=== PATIENT | female | born 1955 | race Hispanic/Latino ===

== ENCOUNTER → 2021-04-28 | Outpatient (CLI) | payer OTHER | END | disposition home or self-care (01) | LOC: SHCH 11:16 | PROVIDERS: ATTEND Internal Medicine | DX: I36.1 Nonrheumatic tricuspid (valve) insufficiency (principal); I11.9 Hypertensive heart disease without heart failure; E66.9 Obesity, unspecified; R94.31 Abnormal electrocardiogram [ECG] [EKG]; R22.43 Localized swelling, mass and lump, lower limb, bilateral | CPT/HCPCS: 93306; 93356 ==

== ENCOUNTER → 2021-05-20 | Outpatient (CLI) | payer OTHER ==
[~2021-05-20] VITALS: Ht 152.4 cm; Wt 126.1 kg
[~2021-05-20] MED LIST: REGADENOSON 0.4 MG/5 ML PF SYG IVP SCH
== END | disposition home or self-care (01) ==
LOC: SHCH 05-02 08:26 → EDUNIT# 05-02 08:30 → SHCH 09:02
PROVIDERS: ATTEND Internal Medicine
DX: R06.09 Other forms of dyspnea (principal)
CPT/HCPCS: 78452; 93017; 96374; A9500 ×2; J2785

== ENCOUNTER 2021-08-04 05:38 | Day surgery (SDC) | payer OTHER ==
[2021-08-02 10:15] VITALS: BP 166/59
[2021-08-02 10:36] LABS: BASOPHILS % (AUTO) 0.5 % (0.0-5.0); EOSINOPHILS % (AUTO) 7.4 % (0.0-8.0); HEMATOCRIT 37.5 % (36-48); LYMPHOCYTES % (AUTO) 18.6 % (21.0-51.0); MEAN CORPUSCULAR HEMOGLOBIN 29.1 pg (27.0-33.0); MEAN CORPUSCULAR HGB CONC 30.1 g/dL (32.0-36.0); MEAN CORPUSCULAR VOLUME 96.6 fL (79-99); MONOCYTES % (AUTO) 9.3 % (3.0-13.0); NEUTROPHILS % (AUTO) 63.6 % (40.0-77.0); PLATELET COUNT (AUTO) 267 K/uL (130-400); RED BLOOD CELL COUNT(AUTO) 3.88 MIL/uL (4.00-5.50); RED CELL DISTRIBUTION WIDTH 15.6 % (11.0-15.5); WHITE BLOOD COUNT (AUTO) 8.6 K/uL (4.8-10.8)
[2021-08-02 10:43] LABS: APPEARANCE,URINE Clear (CLEAR); BILIRUBIN,URINE Negative (NEGATIVE); COLOR,URINE Yellow (YELLOW); CREATININE 1.4 mg/dL (0.5-1.5); GLUCOSE, URINE (UA) Negative (NEGATIVE); KETONES,URINE Negative (NEGATIVE); LEUKOCYTE ESTERASE ,URINE Trace (NEGATIVE); NITRATE,URINE Negative (NEGATIVE); OCCULT BLOOD,URINE Negative (NEGATIVE); PH,URINE 5.5 (5.0-8.0); POTASSIUM 4.1 mmol/L (3.5-5.1); PROTEIN,URINE Negative (NEGATIVE)
[2021-08-02 10:47] LABS: INR 0.98 (0.85-1.15); PROTHROMBIN TIME 10.7 SEC (9.6-11.6)
[2021-08-02 10:48] LABS: PARTIAL THROMBOPLASTIN TIME 28.8 SEC (26.3-35.5)
[2021-08-02 11:04] LABS: BACTERIA,URINE Rare /HPF (None Seen); MUCUS,URINE Rare LPF (None Seen); RBC,URINE 0-1 /HPF (0-1); SQUAMOUS EPITHELIAL CELL,UR Rare /HPF (0-2); WBC,URINE 0-1 /HPF (0-1)
[2021-08-04] VITALS (10 sets, daily range): BP systolic 93–136; BP diastolic 44–68
[~2021-08-04] VITALS: Ht 152.4 cm; Wt 126.8 kg
[~2021-08-04 05:38] MED LIST changes: +AEC81 PO; +ATOR40TA71 PO; +HYDR25TA PO; +ISOS20TA85 PO; +LOSA100T58 PO; +METO-391 PO; -REGADENOSON 0.4 MG/5 ML PF SYG IVP SCH
[2021-08-04] MEDS ORDERED: 0.9%NACL 1000ML 1,000 ML IV ONE (06:11)
[2021-08-04] MEDS ORDERED: HEPARIN 10,000 UNIT/10ML (1,000 UNIT/ML) VIAL ONE (07:10)
[2021-08-04] MEDS ORDERED: LIDOCAINE HCL 1% 20 ML VIAL ONE (07:10)
[2021-08-04] MEDS ORDERED: NICARDIPINE 25MG INJ IV ONE (07:10)
[2021-08-04] MEDS ORDERED: FENTANYL CITRATE PF 50 MCG/1 ML 2ML VIAL ONE (07:11)
[2021-08-04] MEDS ORDERED: IOHEXOL-350 50ML VIAL IV ONE (07:11)
[2021-08-04] MEDS ORDERED: NITROGLYCERIN 50MG VIAL ONE (07:11)
[2021-08-04] MEDS ORDERED: IOHEXOL 350 MG/ML 100ML INFUS..BTL IV ONE ×2 (07:11→08:17)
[2021-08-04] MEDS ORDERED: MIDAZOLAM HCL 1 MG/ML 2ML VIAL ONE (07:11)
[2021-08-04] MEDS ORDERED: 0.9%NACL 1000ML 1,000 ML IV SCH ×2 (08:00→10:00)
[2021-08-04] MEDS ORDERED: ASPIRIN 325MG EC TAB PO ONE (08:20)
[2021-08-04] MEDS ORDERED: CLOPIDOGREL 300MG TAB ONE (08:20)
[2021-08-04] MEDS ORDERED: EPTIFIBATIDE 2 MG/ML 10 ML VIAL IVP ONE (08:24)
[2021-08-04] MEDS ORDERED: ONDANSETRON 4MG INJ ONE ×2 (08:29→08:36)
[2021-08-04] MEDS ORDERED: ACETAMINOPHEN WITH CODEINE 1 TAB TAB PO PRN (10:00)
[2021-08-04] MEDS ORDERED: ONDANSETRON 4MG INJ IVP PRN (10:00)
== END 2021-08-04 14:05 | disposition home or self-care (01) ==
LOC: DAH 05:38
PROVIDERS: ATTEND Internal Medicine
DX: I25.119 Atherosclerotic heart disease of native coronary artery with unspecified angina pectoris (principal); I10 Essential (primary) hypertension; E66.01 Morbid (severe) obesity due to excess calories; E78.5 Hyperlipidemia, unspecified; Z79.01 Long term (current) use of anticoagulants; Z79.82 Long term (current) use of aspirin; Z79.899 Other long term (current) drug therapy; Z98.890 Other specified postprocedural states; Z68.43 Body mass index [BMI] 50.0-59.9, adult
CPT/HCPCS: 36415; 71045; 80048; 81001; 85025; 85610; 85730; 92978; 93005 ×2; 93458; 93571; A4215; A4216; A4221; A4222; A4223 ×3; A4335; A4554; A4606; A4663; C1725; C1753; C1769 ×5; C1874; C1887; C1894; C9600; J1327; J1644 ×3; J2250; J2405 ×2; J3010; J3490 ×2; J7030; Q9965 ×3; Q9967 ×3; 96360; 96361; 99156; 99157

== ENCOUNTER → 2022-12-04 | Outpatient (CLI) | payer OTHER ==
[~2022-12-04] MED LIST changes: -LOSA100T58 PO; +LOSA100T59 PO
== END | disposition home or self-care (01) ==
LOC: SHCH 08:59
PROVIDERS: ATTEND Student in an Organized Health Care Education/Training Program
DX: I11.9 Hypertensive heart disease without heart failure (principal); R06.02 Shortness of breath; E78.5 Hyperlipidemia, unspecified
CPT/HCPCS: 93306

== ENCOUNTER → 2023-09-24 | Outpatient (CLI) | payer OTHER | END | disposition home or self-care (01) | LOC: RAH 11:14 | PROVIDERS: ATTEND Nurse Practitioner Adult Health | DX: H53.133 Sudden visual loss, bilateral (principal) | CPT/HCPCS: 93880 ==

== ENCOUNTER 2023-11-22 20:44 | Emergency (ER) | payer OTHER ==
[~2023-11-22] VITALS: Ht 152.4 cm; Wt 122.5 kg
[2023-11-22] MEDS: FAMOTIDINE 20MG VIAL IV ONE (21:17)
[2023-11-22] MEDS: ONDANSETRON 4MG INJ IVP ONE (21:18)
[2023-11-22] MEDS: KETOROLAC 30MG VIAL (30MG/ML) IVP ONE (21:21)
[2023-11-22 21:27] LABS: BASOPHILS # (AUTO) 0.06 K/uL (0.00-0.20); BASOPHILS % (AUTO) 0.6 % (0.0-5.0); EOSINOPHILS # (AUTO) 0.32 K/uL (0.00-0.70); HEMATOCRIT 37.6 % (36-48); IMMATURE GRANULOCYTE ABSOLUTE 0.08 K/uL (0-1); LYMPHOCYTES # (AUTO) 1.5 K/uL (1.0-4.8); LYMPHOCYTES % (AUTO) 13.7 % (21.0-51.0); MEAN CORPUSCULAR HEMOGLOBIN 29.2 pg (27.0-33.0); MEAN CORPUSCULAR HGB CONC 31.1 g/dL (32.0-36.0); MEAN CORPUSCULAR VOLUME 93.8 fL (79-99); MONOCYTES # (AUTO) 0.8 K/uL (0.1-1.0); MONOCYTES % (AUTO) 7.1 % (3.0-13.0); NEUTROPHILS % (AUTO) 74.8 % (40.0-77.0); PLATELET COUNT (AUTO) 302 K/uL (130-400); RED BLOOD CELL COUNT(AUTO) 4.01 MIL/uL (4.00-5.50); RED CELL DISTRIBUTION WIDTH 16.6 % (11.0-15.5); WHITE BLOOD COUNT (AUTO) 10.6 K/uL (4.8-10.8)
[2023-11-22 21:37] LABS: POTASSIUM 4.3 mmol/L (3.5-5.1)
[2023-11-22 21:42] LABS: ALBUMIN 3.7 g/dL (3.5-5.0); BILIRUBIN,TOTAL 0.5 mg/dL (0.2-1.0); TOTAL PROTEIN, SERUM 7.6 g/dL (6.0-8.3)
[2023-11-22] MEDS ORDERED: ONDA-243 PO (22:55)
[2023-11-22] MEDS ORDERED: FAMO-136 PO (22:55)
[2023-11-22 23:21] VITALS: BP 150/92; PULSE 98; RESP 20; O2SAT 97
== END 2023-11-22 23:23 | disposition home or self-care (01) ==
LOC: EDH 20:44
DX: R11.2 Nausea with vomiting, unspecified (principal); R10.84 Generalized abdominal pain; I10 Essential (primary) hypertension; I25.10 Atherosclerotic heart disease of native coronary artery without angina pectoris; Z79.82 Long term (current) use of aspirin; Z79.899 Other long term (current) drug therapy; Z98.890 Other specified postprocedural states
CPT/HCPCS: 99284; 96374; 96375; 80053; 83690; 85025; 36415; J3490; J2405; J1885

== ENCOUNTER → 2023-11-30 | Outpatient (CLI) | payer OTHER ==
[~2023-11-30] MED LIST changes: +FAMO-136 PO; +ONDA-243 PO
== END | disposition home or self-care (01) ==
LOC: RAH 08:57
PROVIDERS: ATTEND Nurse Practitioner Adult Health
DX: K76.0 Fatty (change of) liver, not elsewhere classified (principal); R10.11 Right upper quadrant pain; K82.8 Other specified diseases of gallbladder; R16.0 Hepatomegaly, not elsewhere classified
CPT/HCPCS: 76700

== ENCOUNTER → 2024-01-02 | Outpatient (CLI) | payer OTHER ==
[2024-01-02 09:14] LABS: CREATININE 0.9 mg/dL (0.5-1.0)
== END | disposition home or self-care (01) ==
LOC: LAB 08:32
PROVIDERS: ATTEND Student in an Organized Health Care Education/Training Program
DX: R10.9 Unspecified abdominal pain (principal)
CPT/HCPCS: 36415; 82565; 84520

== ENCOUNTER → 2024-04-25 | Outpatient (CLI) | payer OTHER ==
[2024-04-25 12:24] LABS: HEMOGLOBIN A1C 6.2 % (4.0-6.0)
[2024-04-25 12:27] LABS: ALBUMIN 3.8 g/dL (3.5-5.0); BILIRUBIN,TOTAL 0.5 mg/dL (0.2-1.0); POTASSIUM 4.8 mmol/L (3.5-5.1); TOTAL PROTEIN, SERUM 7.1 g/dL (6.0-8.3)
== END | disposition home or self-care (01) ==
LOC: LAB 08:13
PROVIDERS: ATTEND Student in an Organized Health Care Education/Training Program
DX: I25.10 Atherosclerotic heart disease of native coronary artery without angina pectoris (principal); Z79.899 Other long term (current) drug therapy
CPT/HCPCS: 36415; 80053; 80061; 83036

== ENCOUNTER → 2024-08-27 | Outpatient (CLI) | payer OTHER ==
[~2024-08-27] MED LIST changes: +ISOS-58 PO; -ISOS20TA85 PO
--- NOTE | 2024-08-27 09:57 | HMCIMG ---
Exam Type: LUMBAR SPINE 2-3VWS Clinical Information: Low back pain, unspecified Comparison: None Findings: Exam of the lumbosacral spine demonstrates no evidence of fracture or subluxation. There are moderate spondylitic changes. The facet joints show moderate degenerative changes. The alignment of the spine is normal. The disc spaces are intact. Bone mineralization is normal. Impression: Spondylitic changes and degenerative changes of the apophyseal joints as noted.
== END | disposition home or self-care (01) ==
LOC: RAH 09:07
PROVIDERS: ATTEND Nurse Practitioner Adult Health
DX: M47.816 Spondylosis without myelopathy or radiculopathy, lumbar region (principal); M46.96 Unspecified inflammatory spondylopathy, lumbar region; M54.50 Low back pain, unspecified
CPT/HCPCS: 72100

== ENCOUNTER → 2024-11-26 | Outpatient (CLI) | payer OTHER ==
[2024-11-26] MEDS: REGADENOSON 0.4 MG/5 ML PF SYG IVP ONE (10:01)
--- NOTE | 2024-11-26 13:46 | HMCSR ---
APPROVED REPORT Height: 5 ft 0in Weight: 257 lbs TEST INDICATIONS Chest Pain The imaging protocol used to acquire images was Rest Tc-99m/stress Tc-99m 1 day Consent: The procedure was explained and understood by the patient. Informerd consent was witnessed Heath Mckenzie RN First, low dose rest was performed then high dose stress. RESTING DATA: The resting ekg shows: NSR Rest SPECT myocardial perfusion imaging was performed in supine position minutes following the intra venous injection of 12 mCi of Tc-99 Sestamibi. Time of rest injection: 09:15: Date: 11/26/2024 PHARMACOLOGIC STRESS: Pharmacologic stress test was performed by injecting regadenoson 0.4 mg IV push followed by the intra venous injection of 30 mCi of Tc-99 Sestamibi. Time of stress injection: 10:45: Date: 11/26/2024 Heart Rate at time of stress injection: 74 bpm. Gated Stress SPECT was performed 60 minutes after stress injection. The images were gated to evaluate regional wall motion and calculate left ventricular ejection fracti on. STRESS DETAILS Reason for Termination: Infusion complete Stress Symptoms: anxious Max HR Achieved: 112 bpm % of APMHR Achieved: 86 Max Blood Pressure: 160/50 mmHg Stress ECG: NSR Conclusion Partially reversible anterior and septal defects consistent with ischemia LV ejection fraction 62% Normal LV wall motion Normal LV size at rest and stress No increased lung uptake
== END | disposition home or self-care (01) ==
LOC: RAH 08:36
PROVIDERS: ATTEND Student in an Organized Health Care Education/Training Program
DX: R07.9 Chest pain, unspecified (principal)
CPT/HCPCS: 78452; 93017; J2785; A9500 ×2

== ENCOUNTER 2025-01-30 05:56 | Day surgery (SDC) | payer OTHER ==
[2025-01-28 09:53] VITALS: BP 154/69; PULSE 71; RESP 18; TEMP 98.1
--- NOTE | 2025-01-28 10:11 | EKG ---
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
[2025-01-28 10:22] LABS: IMMATURE GRANULOCYTE ABSOLUTE 0.04 K/uL (0-1); NUCLEATED RED BLOOD CELLS 0.0 % (0.0-0.19); PLATELET COUNT (AUTO) 263 K/uL (130-400); RED BLOOD CELL COUNT(AUTO) 3.86 MIL/uL (4.00-5.50); RED CELL DISTRIBUTION WIDTH 16.3 % (11.0-15.5); WHITE BLOOD COUNT (AUTO) 6.9 K/uL (4.8-10.8)
[2025-01-28 10:35] LABS: INR 0.97 (0.85-1.15)
[2025-01-28 10:41] LABS: CREATININE 1.0 mg/dL (0.5-1.0); GLOMERULAR FILTR. RATE CALC 61.0 mL/min (>90); GLUCOSE,RANDOM 94.0 mg/dL (70-105); SODIUM SERUM 139.0 mmol/L (136-145); UREA NITROGEN, BLOOD 16.0 mg/dL (7-18)
--- NOTE | 2025-01-28 14:12 | HMCIMG ---
EXAM: CR Chest, 1 View. CLINICAL HISTORY: PRE OP COMPARISON: X-ray chest 08/02/2021 FINDINGS: LUNGS: The lungs show no infiltrate or other acute finding. PLEURAL SPACES: No pleural effusion or pneumothorax. MEDIASTINUM: The cardiomediastinal silhouette is within normal limits. BONES: No acute osseous abnormality. IMPRESSION: No acute cardiopulmonary pathology is evident. /[place]
[~2025-01-30] VITALS: Ht 152.4 cm; Wt 115.9 kg
[2025-01-30] VITALS (11 sets, daily range): BP systolic 97–172; BP diastolic 50–75; PULSE 62–75; RESP 15–16; TEMP 97.8–208
[~2025-01-30 05:56] MED LIST changes: -FAMO-136 PO; +FAMO40TA7 PO; -HYDR25TA PO; -ISOS-58 PO; -LOSA100T59 PO; -METO-391 PO; -ONDA-243 PO
[2025-01-30] MEDS ORDERED: LIDOCAINE HCL 400MG/20ML VIAL ONE (07:11)
[2025-01-30] MEDS ORDERED: HEParin-NS 1,000 UNIT/500 ML 1,000 ML IV ONE (07:12)
[2025-01-30] MEDS: 0.9%NACL 1000ML 1,000 ML IV ONE (07:12)
[2025-01-30] MEDS ORDERED: IOHEXOL 350 MG/ML 100ML INFUS..BTL IV ONE (07:12)
[2025-01-30] MEDS ORDERED: VERAPAMIL HCL 2.5 MG/ML VIAL ONE (07:12)
[2025-01-30] MEDS ORDERED: NITROGLYCERIN 50MG VIAL ONE (07:12)
[2025-01-30] MEDS ORDERED: MIDAZOLAM HCL 1 MG/ML 2ML VIAL ONE ×2 (07:27→07:43)
--- NOTE | 2025-01-30 08:10 | PRN ---
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 A 6 Setswana arterial sheath was inserted in the right radial artery using ultrasound guidance with first pass wall puncture. The arterial sheath was aspirated and flushed. A 6 Setswana JL 3.5 was then advanced to the ascending aorta over an exchange length J-tip guidewire, was aspirated and flushed, and was used for selective coronary angiograms in multiple obliquities. A JR-4 was advanced in a similar fashion to the ascending aorta over the J-tipped guidewire and was used for selective right coronary angiograms in multiple oblique views with findings as outlined below. The JR-4 catheter advanced into the LV and pressures were obtained with a pull-back across the aortic valve. A TR band was placed over right radial artery. FLUOROSCOPY TIME: 2.2 min LEFT HEART HEMODYNAMICS: LVEDP 15 mm Hg and no gradient Ao CORONARY ANGIOGRAM: LEFT MAIN: Patent and 0% stenosis. Gives rise to LCx and LAD. LEFT ANTERIOR DESCENDING: Large vessel giving rise to two Diagonal branches. There is patent proximal LAD stent just after the first septal artery with DALTON 3 flow. Diag are patent LEFT CIRCUMFLEX: Large and gives rise to two OM branches. 30-400% ostial stenosis. OMs are large and patent RIGHT CORONARY ARTERY: Large, dominant vessel giving rise to PDA and PL branches. 0% stenosis. HEMOSTASIS: TR band 12 ivy over right radial artery INTERVENTIONS: None. COMPLICATIONS: None FINDINGS: Normal coronary anatomy and mild non-obstructive CAD with patent LAD stent ESTIMATED BLOOD LOSS: 5 cc RECOMMENDATIONS/INSTRUCTIONS: Aggressive risk factor modification. CONTRAST DELIVERED TO PATIENT (mL): 80cc MD CANDY Oden JAMES R MD Jan 30, 2025 08:10
[2025-01-30] MEDS ORDERED: GLUCAGON 1MG KIT 1 MG ML IM PRN (08:30)
[2025-01-30] MEDS ORDERED: 0.9%NACL 1000ML 1,000 ML IV SCH (08:30)
[2025-01-30] MEDS ORDERED: DEXTROSE 50%-WATER 50 ML DISP.SYRIN IV PRN (08:30)
== END 2025-01-30 12:33 | disposition short-term general hospital (02) ==
LOC: DAH 05:56
PROVIDERS: ATTEND Student in an Organized Health Care Education/Training Program
DX: R07.9 Chest pain, unspecified (principal); I25.118 Atherosclerotic heart disease of native coronary artery with other forms of angina pectoris; R06.09 Other forms of dyspnea; E78.5 Hyperlipidemia, unspecified; E66.01 Morbid (severe) obesity due to excess calories; R73.03 Prediabetes; I49.1 Atrial premature depolarization; Z95.5 Presence of coronary angioplasty implant and graft; I11.9 Hypertensive heart disease without heart failure; Z88.8 Allergy status to other drugs, medicaments and biological substances; Z68.42 Body mass index [BMI] 45.0-49.9, adult; Z79.899 Other long term (current) drug therapy
CPT/HCPCS: 80048; 85025; 85610; 85730; 36415; 71045; 93005; 93458; 99156; 99157; C1769; C1894; A4649; Q9965; J3010; J3490 ×3; J7030; J1644 ×2; J2250 ×2; A4215; A4222; A4221; A4663; A4216; A4606; A4223 ×3; 96360; 96361; Q9967